=== PATIENT | female | born 1995 | race American Indian/Alaskan Native ===

== ENCOUNTER 2016-10-24 20:15 | Emergency (ER) | payer SELFPAY ==
[2016-10-24 20:30] VITALS: BP 140/78
== END 2016-10-25 03:53 | disposition left against medical advice (07) ==
LOC: ED 20:15
DX: M54.2 Cervicalgia (principal); M54.6 Pain in thoracic spine; V49.9XXA Car occupant (driver) (passenger) injured in unspecified traffic accident, initial encounter; Y93.89 Activity, other specified; Y99.9 Unspecified external cause status; Y92.410 Unspecified street and highway as the place of occurrence of the external cause; Z53.21 Procedure and treatment not carried out due to patient leaving prior to being seen by health care provider

== ENCOUNTER 2018-10-29 21:07 | Emergency (ER) | payer OTHER, BC ==
[2018-10-29 22:34] VITALS: BP 130/78
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
== END 2018-10-30 01:16 | disposition left against medical advice (07) ==
LOC: ED 21:07
DX: M54.2 Cervicalgia (principal); Z53.21 Procedure and treatment not carried out due to patient leaving prior to being seen by health care provider
CPT/HCPCS: 72040